=== PATIENT | male | born 1955 | race African-American/Black ===

== ENCOUNTER 2023-11-05 18:07 | Emergency (ER) | payer OTHER ==
[~2023-11-05] VITALS: Ht 170.2 cm; Wt 66.0 kg
[2023-11-05 18:14] VITALS: TEMP 98.2
[2023-11-05] MEDS ORDERED: Ketorolac 30 MG/ML VIAL IM ONE (18:45)
[2023-11-05] MEDS ORDERED: MOBIC 7.5MG7.5 MG PO (18:56)
[2023-11-05 19:05] VITALS: BP 123/83; PULSE 76
== END 2023-11-05 19:05 | disposition home or self-care (01) ==
LOC: COL.ER 18:07
DX: M25.552 Pain in left hip (principal); F17.200 Nicotine dependence, unspecified, uncomplicated
CPT/HCPCS: J1885